=== PATIENT | female | born 1990 | race Caucasian/White ===

== ENCOUNTER 2020-05-17 22:23 | Day surgery (SDC) | payer OTHER ==
[2020-05-17 22:58] VITALS: BMI 32.3
[2020-05-17 23:03] VITALS: BP 112/73
--- NOTE | 2020-05-18 01:09 | PRG ---
DATE OF SERVICE: 05/17/2020 Primary OB is Ms. Jacqui Andrade Certified Nurse [employer] Tenn[employer]. CHIEF COMPLAINT: Abdominal pains. HISTORY OF PRESENT ILLNESS: The patient is a 29-year-old G1, P0 female with an intrauterine at 38 weeks and 2 days, presenting to Labor and Delivery for uterine contractions that she reports began last night. The patient reports her contractions over time have become more consistent in frequency about every 4 to 5 minutes apart, feeling like strong menstrual cramps. The patient denies any leakage of fluid or vaginal bleeding. She denies any fever, cough, headache, chest pain, shortness of breath. She has had some nausea. Denies vomiting. She has had some diarrhea. Denies constipation. She denies any new rashes, hip problems, knee problems, muscle weakness. PAST MEDICAL HISTORY: Includes anxiety and thrombocytopenia. PAST SURGICAL HISTORY: Negative. ALLERGIES: NO KNOWN DRUG ALLERGIES. MEDICATIONS: Prednisone, Zoloft, and vitamins. SOCIAL HISTORY: Denies drug, alcohol, or tobacco use. OBSTETRICAL LABS: Unavailable at the time of dictation. REVIEW OF SYSTEMS: Per HPI. PHYSICAL EXAMINATION: VITAL SIGNS: Blood pressure is 112/73, heart rate of 83, respiratory rate of 18, saturating 97% on room air. GENERAL: She appears to be in no acute distress. She is alert, oriented, cooperative, and pleasant to interact with. HEAD: Normocephalic and atraumatic. LUNGS: Clear to auscultation bilaterally. HEART: Has a regular rate and rhythm. ABDOMEN: Gravid, soft, nontender. EXTREMITIES: Nontender, nonedematous. CERVICAL EXAM: 1-1/2, 20, and -3 station. Fetus has a baseline in the 130s with moderate long-term variability, positive 15 x 15 accelerations, no decelerations. Contractions are approximately every 4 to 8 minutes with irritability in between. ASSESSMENT AND PLAN: The patient is a 29-year-old G1, P0 female with an intrauterine at 38 weeks and 2 days, presenting for uterine contractions. The patient has no evidence at this time of active labor. She is being discharged home with a category 1 tracing and reactive NST with her fetus. She has an appointment next week with her primary provider Ms. Jacqui Andrade, though we have encouraged that she keep. She has also been given term labor precautions. Job ID: [id number]
== END 2020-05-18 00:10 | disposition home health service (06) ==
LOC: L&D/OP 22:23
PROVIDERS: ATTEND Advanced Practice Midwife
DX: O47.1 False labor at or after 37 completed weeks of gestation (principal); O99.343 Other mental disorders complicating pregnancy, third trimester; F41.9 Anxiety disorder, unspecified; Z3A.38 38 weeks gestation of pregnancy; Z79.899 Other long term (current) drug therapy
CPT/HCPCS: 99282

== ENCOUNTER 2020-05-24 19:21 | Day surgery (SDC) | payer OTHER ==
[2020-05-24 19:57] VITALS: BP 115/80; TEMP 99.3; BMI 32.6
--- NOTE | 2020-05-24 20:54 | PDOC.LDHP ---
Labor and Delivery H&P Chief complaint: other (double vision) HPI: 29 y/o G1 at 39w1d, patient of Enid Andrade presents with new onset double vision. Patient reports she took a nap and woke up around 6pm with double vision that did not improve. She denies pain, fatigue, headache, or other concerns. Her noticed her left eye appeared droopy. Denies VB, LOF, ctx. She has not felt the baby move since she woke up this evening. ROS neg for HEENT, cv, pulm, gi, gu, neuro, psych, skin, musculoskeletal or constitutional symptoms other than mentioned above. OB History Details: First Current complications: none Past Medical History: ITP Current medications: pre- vitamins, other (prednisone 10mg daily) Previous surgical history: none Allergies/Adverse Reactions: Allergies Allergy/AdvReac Type Severity Reaction Status Date / Time No Known Allergies Allergy Verified 05/17/20 22:55 Social history: none - Physical Exam Vital signs reviewed and normal: yes General: NAD, resting, other (pupils unequal in size, left sluggish to react to light. EOM appear intact.) Lungs: nonlabored breathing Abdomen: gravid Extremeties: no edema FHT: category 1 (130s, mod variability, + accels, no decels) Gage contractions every: irregular - Assessment 29 y/o G1 at 39w1d with new onset diplopia with unequal pupils and sluggish reaction to light on left. status reassuring with reactive NST. - Plan -: Discussed with Dr. Gonzalez in ED - Will transfer to ED for further evaluation of neurologic abnormalities.
[2020-05-25] MEDS ORDERED: FLU VACC QS2020-21(6MOS UP)/PF 60 MCG/0.5 ML SYRINGE IM ONE (09:00)
== END 2020-05-24 20:12 | disposition short-term general hospital (02) ==
LOC: L&D/OP 19:21
PROVIDERS: ATTEND Advanced Practice Midwife
DX: O99.891 Other specified diseases and conditions complicating pregnancy (principal); H53.2 Diplopia; H57.02 Anisocoria; Z3A.39 39 weeks gestation of pregnancy
CPT/HCPCS: 36415; 70544; 70551; 80053; 83519; 85025; 85610; 85730

== ENCOUNTER 2020-05-24 20:20 | Emergency (ER) | payer OTHER ==
[2020-05-24 21:09] LABS: #Basophils 0.1 thou/uL (0.0-0.2); #Eosinphils 0.1 thou/uL (0.0-0.7); #Lymphocytes 1.7 thou/uL (1.20-3.40); #Monocytes 0.7 thou/uL (0.11-0.59); #Neutrophils 7.9 thou/uL (1.40-6.50); %Basophils 0.5 % (0.0-1.0); %Eosinophils 0.9 % (0.0-10.0); %Lymphocytes 16.2 % (21.0-51.0); %Monocytes 6.4 % (0.0-10.0); Hemoglobin 12.6 g/dL (12.0-16.0); Mean Corpuscular HGB CONC 35.5 g/dL (32.0-36.0); Mean Corpuscular Hemoglobin 33.8 pg (27.0-31.0); Mean Corpuscular Volume 95.3 fL (78.0-98.0); Mean Platelet Volume 9.6 fL (7.4-10.4); Platelet Count 85 thou/uL (130-400); RBC Distribution Width 12.5 % (11.5-14.5); Red Blood Cell (RBC) Count 3.74 mill/uL (4.20-5.40); White Blood Cell (WBC) Count 10.4 thou/uL (4.8-10.8)
[2020-05-24 21:13] LABS: INR-International Normal Ratio 1.1; Prothrombin Time 14.1 sec (12.0-14.7)
[2020-05-24 21:27] LABS: ALT (SGPT) 10 U/L (8-55); AST (SGOT) 15 U/L (5-34); Albumin 3.2 g/dL (3.5-5.0); Alkaline Phosphatase 128 U/L (40-110); Anion Gap 14 mmol/L (10-20); BUN (Urea Nitrogen) 7 mg/dL (7.0-18.7); Bilirubin, Total 0.4 mg/dL (0.2-1.2); Calc. Creatinine Clearance 0 mL/min (70-130); Calcium 8.1 mg/dL (7.8-10.44); Carbon Dioxide 19 mmol/L (22-29); Chloride 107 mmol/L (98-107); Estimated GFR-MDRD Greater than 90; Globulin 2.4 g/dL (2.4-3.5); Glucose 77 mg/dL (70-105); Potassium 3.7 mmol/L (3.5-5.1); Protein, Total 5.6 g/dL (6.0-8.3); Sodium 136 mmol/L (136-145)
--- NOTE | 2020-05-24 21:58 | MRI ---
Exam: Brain MRI without contrast HISTORY: Double vision. 39 week patient. COMPARISON: None FINDINGS: Calvarial marrow signal intensity: Appropriate T1 signal Gradient echo sequence: No hemorrhage Brain parenchyma: No mass, mass effect or midline shift. Brain volume, age-appropriate. Cortical king-white matter differentiation: Preserved Restricted diffusion: Central arterial flow voids are maintained. Absent restricted diffusion White matter signal intensities:No significant T2 or FLAIR white matter hyperintensities. Sinuses: Mucosal disease of the paranasal sinuses, greatest in both maxillary sinuses. IMPRESSION: No acute intracranial process.
--- NOTE | 2020-05-24 22:01 | MRI ---
Exam: MR angiography of the [place] HISTORY: 39 week patient. Double vision. COMPARISON: None TECHNIQUE: MR angiogram of the [place] performed utilizing axial 3-D [id number] imaging. Maximum intensity projection images are submitted for interpretation FINDINGS: Symmetric flow related signal in the distal cervical internal carotid arteries Anterior circulation demonstrates symmetric flow related signal in the A1 segments, proximal A2 segme nts, M1 segments and proximal MCA branches. No vascular occlusion. No aneurysm. Distal cervical and intracranial vertebral arteries have appropriate flow related signal. Visualized PICA artery origins have appropriate flow related signal. Bilateral vertebral arteries supply a normal appearing basilar artery. Appropriate flow related signal in the basilar artery and bilateral P1 segments. No vascular occlusion. No aneurysm. IMPRESSION: No evidence of occlusion or aneurysm at the level of the [place].
--- NOTE | 2020-05-24 22:06 | MRI ---
Exam: MR venogram of the head HISTORY: Double vision. Comparison none TECHNIQUE: Coronal 2-D [id number] imaging was performed. Maximum intensity projection images are submitted for dictation FINDINGS: Appropriate flow related signal in the sagittal sinus, internal cerebral veins, straight si nus, vein of Kael, bilateral transverse sinuses and sigmoid sinuses. No definite filling defects to suggest venous sinus thrombosis. IMPRESSION: No evidence of sinus thrombosis.
== END 2020-05-25 01:45 | disposition home or self-care (01) ==
LOC: ERS 20:20
DX: O99.891 Other specified diseases and conditions complicating pregnancy (principal); H53.2 Diplopia; O99.113 Other diseases of the blood and blood-forming organs and certain disorders involving the immune mechanism complicating pregnancy, third trimester; D69.6 Thrombocytopenia, unspecified; O99.343 Other mental disorders complicating pregnancy, third trimester; F41.9 Anxiety disorder, unspecified; Z3A.39 39 weeks gestation of pregnancy; Z79.899 Other long term (current) drug therapy
CPT/HCPCS: 36415; 70544; 70551; 80053; 85025; 85610; 85730

== ENCOUNTER 2020-05-26 16:24 | Inpatient (IN) | payer OTHER ==
[~2020-05-26 16:24] MED LIST: Bupivacaine 0.25% HCL 30 ML VIAL ONE; Bupivacaine/Epinephrine 0.25% 30 ML VIAL ONE; Terbutaline Sulfate 1 MG/ML VIAL ONE
[2020-05-26 17:11] VITALS: BMI 32.6
[2020-05-26] MEDS ORDERED: Lactated Ringer's 1,000 ML IV SCH (18:52)
[2020-05-26] MEDS ORDERED: Ondansetron PF 4 MG/2 ML Vial IVP PRN (18:52)
[2020-05-26] MEDS ORDERED: NS / Oxytocin 40 units/1000ml 1,000 ML IV PRN (18:52)
[2020-05-26] MEDS ORDERED: hydrALAZINE 20 MG/ML VIAL SLOW IVP PRN (18:52)
[2020-05-26] MEDS ORDERED: Lidocaine 1% (PF) 30 ML VIAL SC PRN (18:52)
[2020-05-26] MEDS ORDERED: HYDROcodone/Acetaminophen 5/325 mg Tablet PO PRN ×2 (18:52)
[2020-05-26] MEDS ORDERED: NS w/ Oxytocin 10 units 500 ML IV SCH (18:52)
[2020-05-26] MEDS ORDERED: Promethazine HCl 25 MG/ML VIAL IM PRN (18:52)
[2020-05-26] MEDS ORDERED: Butorphanol Tartrate 1 MG/ML VIAL SLOW IVP PRN (18:52)
[2020-05-26] MEDS ORDERED: Ibuprofen 800 MG TAB PO PRN (18:52)
[2020-05-26 19:20] LABS: Hemoglobin 13.2 g/dL (12.0-16.0); Mean Corpuscular HGB CONC 35.3 g/dL (32.0-36.0); Mean Corpuscular Hemoglobin 33.8 pg (27.0-31.0); Mean Corpuscular Volume 95.6 fL (78.0-98.0); Mean Platelet Volume 9.7 fL (7.4-10.4); Platelet Count 85 thou/uL (130-400); RBC Distribution Width 12.6 % (11.5-14.5); White Blood Cell (WBC) Count 14.4 thou/uL (4.8-10.8)
[2020-05-26 20:10] LABS: Syphilis Antibody Nonreactive (Nonreactive); Syphilis Antibody Index 0.02 S/CO (<1.00 Non-Reactive)
[2020-05-26] MEDS ORDERED: Fentanyl 4 mcg/Bup 0.1% Cadd 100 ML ONE (21:19)
--- NOTE | 2020-05-26 21:37 | PDOC.LDHP ---
Labor and Delivery H&P Chief complaint: contractions HPI: Patient has been jose since 0400. She affirms movement, Denies LOF or VB. Her double vision from two days ago has resolved withe a negative workup in ER and discharge. Current gestational age (weeks): 39 Due date: 05/30/20 Dating criteria: last menstrual period Grav: 1 Para: 0 Current complications: other (Idopathic thrombocytopenia of .) Abnormal US findings: No Current medications: pre-silvano vitamins, other (Prednisone 10mg PO QD) Allergies/Adverse Reactions: Allergies Allergy/AdvReac Type Severity Reaction Status Date / Time No Known Allergies Allergy Verified 05/17/20 22:55 Social history: none - Physical Exam Vital signs reviewed and normal: yes General: breathing through contractions Lungs: nonlabored breathing Abdomen: gravid FHT: category 1 - Vaginal Exam cm dilated: 4 - OB Labs Additional Labs: Laboratory Tests 05/26/20 18:58 WBC 14.4 H RBC 3.90 L Hgb 13.2 Hct 37.3 Plt Count 85 L - Assessment L&D Assessment: term patient in labor - Plan Plan: admit to L&D, anesthesia consult for pain management (PLT 85 on admission. Consult with anesthsia for epidural placement vs. rescue steriod dose and wait until morning for epidural if PLT increase.)
[2020-05-27 01:18] LABS: HBSAg Index 0.16 S/CO (0-0.99); Hep B Surf Ag Non-Reactive S/CO (NonReactive)
[2020-05-27] MEDS ORDERED: Fentanyl 4 mcg/Bup 0.1% Cadd 100 ML ONE ×2 (05:06→10:33)
[2020-05-27] MEDS ORDERED: Promethazine HCl 25 MG/ML VIAL IM PRN (07:48)
[2020-05-27] MEDS ORDERED: Ondansetron PF 4 MG/2 ML Vial IVP PRN (07:48)
[2020-05-27] MEDS ORDERED: Acetaminophen 325 MG TAB PO PRN (07:48)
[2020-05-27] MEDS ORDERED: EPHEDRINE 25 MG/5 ML SYRINGE SLOW IVP PRN (07:48)
[2020-05-27] MEDS ORDERED: Naloxone HCl 0.4 mg/ml Vial IVP PRN ×2 (07:48)
[2020-05-27] MEDS ORDERED: diphenhydrAMINE 50 MG/ML VIAL IVP PRN (07:48)
[2020-05-27] MEDS ORDERED: Lactated Ringer's 500 ML IV PRN (07:48)
[2020-05-27] MEDS ORDERED: NS / Oxytocin 40 units/1000ml 1,000 ML ONE ×2 (07:57→08:20)
[2020-05-27] MEDS ORDERED: Lidocaine 1% (PF) 30 ML VIAL ONE ×2 (07:57→08:20)
[2020-05-27] MEDS ORDERED: Communication Order-Pharmacy FS SCH (08:00)
[2020-05-27] MEDS ORDERED: Misoprostol 200 MCG TAB ONE (08:00)
[2020-05-27] MEDS ORDERED: Fentanyl 4 mcg/Bupivacaine 0.1% Cassette 100 ML EPIDURAL SCH (08:00)
[2020-05-27] MEDS ORDERED: Calcium Carbonate 500 MG ChewTAB PO PRN (08:31)
[2020-05-27] MEDS ORDERED: Methylergonovine 0.2 MG/ML VIAL ONE (08:48)
[2020-05-27] MEDS ORDERED: FLU VACC QS2020-21(6MOS UP)/PF 60 MCG/0.5 ML SYRINGE IM ONE (09:00)
[2020-05-27] MEDS ORDERED: Terbutaline Sulfate 1 MG/ML VIAL SC SCH (11:40)
[2020-05-27] MEDS: Lactated Ringer's 1,000 ML IV SCH (11:44)
[2020-05-27 12:34] LABS: SARS-CoV-2 MS2 Positive; SARS-CoV-2 N Gene Negative; SARS-CoV-2 S Gene Negative; SARS-CoV-2 by NAA Not Detected (NotDetected); SARS-CoV-2 orf1ab Negative
--- NOTE | 2020-05-27 14:08 | PDOC.OPDEL ---
OB Operative/Delivery Note Delivery Dr/Surgeon: Lupe Pre-Delivery Diagnosis: active labor Procedure/Post Delivery Dx: spontaneous vaginal delivery Weeks gestation: 39 Anesthesia: epidural - Findings A Sex: female - Additional Findings/Plan Repaired Obstetrical Laceration: left labial Estimated blood loss: 490mL Compilations/Other Findings: Maternal fever at time of delivery of 101.4 and 102.5 immediately after. [facility] team called after delivery for apnea. Cord gas collected.
[2020-05-27 14:58] LABS: Actual Bicarbonate (HCO3v) 21 mEq/L (22-28); Analyzer IN Cardio OR; Base Excess -6.2 mEq/L (-2.0 to +3.0); pH (Cord, venous) 7.26 (7.32-7.43)
[2020-05-27 14:59] LABS: Actual Bicarbonate (HCO3a) 21.4 mEq/L (22-28); Analyzer IN Cardio OR; Base Excess (BEa) -7.3 mEq/L (-2.0 to +3.0)
[2020-05-27] MEDS ORDERED: hydrALAZINE 20 MG/ML VIAL SLOW IVP PRN (15:20)
[2020-05-27] MEDS ORDERED: Bisacodyl 10 MG SUPP PR PRN (15:20)
[2020-05-27] MEDS ORDERED: NS / Oxytocin 40 units/1000ml 1,000 ML IV SCH (15:20)
[2020-05-27] MEDS ORDERED: HYDROcodone/Acetaminophen 5/325 mg Tablet PO PRN ×2 (15:20)
[2020-05-27] MEDS ORDERED: Misoprostol 200 MCG TAB VAG PRN (15:20)
[2020-05-27] MEDS ORDERED: Milk Of Magnesia 30 ML UDCUP PO PRN (15:20)
[2020-05-27] MEDS ORDERED: Benzocaine-Menthol 82.5 ML CAN TOP PRN (15:20)
[2020-05-27] MEDS: Ferrous Sulfate 325 MG TAB PO SCH (18:00)
[2020-05-27] MEDS: Ibuprofen 800 MG TAB PO SCH (21:17)
[2020-05-27] MEDS: Docusate Calcium (SURFAK) 240 MG CAP PO SCH (21:17)
[2020-05-28 06:09] LABS: Band 34 % (5-11); Eosinophils 1 % (0-10); Hemoglobin 10.9 g/dL (12.0-16.0); Lymphocytes 7 % (21-51); MDiff Complete? YES; Mean Corpuscular HGB CONC 35.6 g/dL (32.0-36.0); Mean Corpuscular Hemoglobin 34.4 pg (27.0-31.0); Mean Corpuscular Volume 96.7 fL (78.0-98.0); Mean Platelet Volume 9.4 fL (7.4-10.4); Monocytes 1 % (0-10); Neutrophil 57 % (42-75); Platelet Count 65 thou/uL (130-400); Platelet Morphology Comment Appears Decreased; RBC Distribution Width 12.6 % (11.5-14.5); Red Blood Cell (RBC) Count 3.16 mill/uL (4.20-5.40); White Blood Cell (WBC) Count 22.7 thou/uL (4.8-10.8)
[2020-05-28] MEDS: Ibuprofen 800 MG TAB PO SCH ×2 (06:10→14:28)
[2020-05-28] MEDS: Ferrous Sulfate 325 MG TAB PO SCH ×2 (07:17→07:18)
[2020-05-28] MEDS: Lactated Ringer's 1,000 ML IV SCH (07:27)
[2020-05-28] MEDS: Docusate Calcium (SURFAK) 240 MG CAP PO SCH (08:49)
[2020-05-28] MEDS ORDERED: Prenatal Vitamin 1 TAB PO SCH (09:00)
[2020-05-28] MEDS ORDERED: Adacel (T-DAP) 0.5 ML SYRINGE IM ONE (09:00)
--- NOTE | 2020-05-28 09:16 | PDOC.PP ---
Post Progress Note Post Day #: PPD1 Subjective: Resting comfortably. No c/o. PO intake tolerated: yes Flatus: yes Ambulation: yes Vital Signs (12 hours) Temp Pulse Resp BP Pulse Ox 05/28/20 04:45 97.7 F 67 18 110/66 97 05/28/20 00:48 99.1 F 67 18 133/65 96 Weight Weight 97.522 kg - Physical Examination General: NAD Respiratory: non-labored breathing Neurological: no gross focal deficits Psychiatric: normal affect Result Diagrams: 05/28/20 05:03 Additional Labs: Post Labs Hep Bs Antigen Non-Reactive S/CO (NonReactive) 05/26/20 18:58 Blood Type A POSITIVE 05/26/20 19:34 - Assessment/Plan Doing well s/p . Routine PP care.
[2020-05-28 09:19] VITALS: BP 123/61; TEMP 98
--- NOTE | 2020-05-28 13:06 | PDOC.EVN ---
Event Note - Event Note Event Note: Baby has been discharged. Wants to go home. Orders placed. RTC 6 weeks with [place] Light.
[2020-05-29] MEDS ORDERED: FLU VACC QS2020-21(6MOS UP)/PF 60 MCG/0.5 ML SYRINGE IM ONE (10:15)
== END 2020-05-28 15:45 | disposition home or self-care (01) | DRG 806 ==
LOC: L&D/OP 16:24 → L&D 05-27 07:19 → 3SE 05-27 15:37
PROVIDERS: ADMIT Obstetrics & Gynecology; ATTEND Obstetrics & Gynecology
PROC: 10E0XZZ Delivery of Products of Conception, External Approach (ICD-10-PCS; principal; 2020-05-27)
PROC: 0UQMXZZ Repair Vulva, External Approach (ICD-10-PCS; 2020-05-27)
PROC: 10907ZC Drainage of Amniotic Fluid, Therapeutic from Products of Conception, Via Natural or Artificial Opening (ICD-10-PCS; 2020-05-27)
DX: O99.12 Other diseases of the blood and blood-forming organs and certain disorders involving the immune mechanism complicating childbirth (principal); D69.3 Immune thrombocytopenic purpura; Z37.0 Single live birth; Z20.828 Contact with and (suspected) exposure to other viral communicable diseases; Z3A.39 39 weeks gestation of pregnancy; O70.0 First degree perineal laceration during delivery; O86.4 Pyrexia of unknown origin following delivery; O69.1XX0 Labor and delivery complicated by cord around neck, with compression, not applicable or unspecified
CPT/HCPCS: 36415; 51702; 70544; 70551; 80053; 82805; 83519; 85025; 85027; 85610; 85730; 86780; 86850; 86900; 86901; 87340; 87635; 88307; 90471; 90662; 99282; 99285; G0008; J2001; J2210; J3105; S0020; U0003